=== PATIENT | female | born 1945 | race Caucasian/White ===

== ENCOUNTER 2017-12-04 14:29 | Emergency (ER) | payer MEDICARE, OTHER ==
[2017-12-04 14:39] VITALS: BP 92/58
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
== END 2017-12-04 17:10 | disposition home or self-care (01) ==
LOC: ER 14:29
DX: Z76.0 Encounter for issue of repeat prescription (principal); E11.9 Type 2 diabetes mellitus without complications; Z98.84 Bariatric surgery status
CPT/HCPCS: 99281